=== PATIENT | female | born 1990 | race Caucasian/White ===

== ENCOUNTER 2019-09-11 14:28 | Emergency (ER) | payer MEDICAID, OTHER ==
[~2019-09-11] VITALS: Ht 167.6 cm; Wt 60.0 kg
--- NOTE | 2019-09-11 15:15 | NUR ---
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
[2019-09-11 15:22] VITALS: BP 143/102
--- NOTE | 2019-09-11 16:11 | NUR ---
PT PROVIDED W/ PO FLUIDS PER IRENE VALDES
--- NOTE | 2019-09-11 17:05 | NUR ---
Patient given discharge instructions and they have confirmed that they understand the instructions. Patient ambulatory with steady gait.
== END 2019-09-11 17:07 | disposition home or self-care (01) ==
LOC: EDBD 14:28 → ED 15:08
DX: J00 Acute nasopharyngitis [common cold] (principal); F15.10 Other stimulant abuse, uncomplicated; J44.9 Chronic obstructive pulmonary disease, unspecified; F17.200 Nicotine dependence, unspecified, uncomplicated
CPT/HCPCS: 71045; 99283